=== PATIENT | female | born 1965 | race Caucasian/White ===

== ENCOUNTER → 2025-03-14 | Outpatient (CLI) | payer MEDICAID, SELFPAY ==
--- NOTE | 2025-03-14 15:09 | XR_ITS ---
EXAMINATION: Left femur 2 views TECHNIQUE: AP lateral left femur 2 views Date and time: March 14, 2025, 1514 hours INDICATIONS: Postop reduction internal fixation fracture distal femur January 02, 2025 FINDINGS: Postop reduction internal fixation fracture distal femoral shaft with satisfactory alignment Significant partial healing Orthopedic hardware in satisfactory position IMPRESSION: Significant healing fracture distal femoral shaft with satisfactory alignment
== END | disposition home or self-care (01) ==
PROVIDERS: Referring Provider Orthopaedic Surgery; Visit Provider Orthopaedic Surgery
DX: S72.425A Nondisplaced fracture of lateral condyle of left femur, initial encounter for closed fracture (principal); W23.0XXA Caught, crushed, jammed, or pinched between moving objects, initial encounter
CPT/HCPCS: 73552

== ENCOUNTER 2025-03-19 13:00 | Outpatient (RCR) | payer MEDICAID, SELFPAY ==
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
--- NOTE | 2025-03-11 13:07 | PT.ODAYNRPT ---
PT Outpatient Daily Note OP Daily Note Outpatient Physical Therapy Treatment Date: 03/11/25 Visit Reasons: FRACTURE OF LEFT FEMUR Subjective: Same as time of evaluation Objective: See F/S for therex MHP: x7' Assessment: Pt ambulates with decreased knee flexion ROM with 4WW. She can SLR and lunge with low L knee pain. Plan: Continue per POC Length of Time (minutes) of Treatment: 30 Minutes Procedure Charges Therapeutic Exercise 30 minutes: Yes
--- NOTE | 2025-03-17 13:45 | PT.ODAYNRPT ---
PT Outpatient Daily Note OP Daily Note Outpatient Physical Therapy Treatment Date: 03/17/25 Visit Reasons: FRACTURE OF LEFT FEMUR Subjective: Wants to ambulate without the walker Objective: See F/S for therex MHP: x7' Assessment: Pt ambulates with decreased knee flexion ROM with 4WW and small steps without the walker. She can SLR and lunge with low L knee pain. Plan: Continue per POC Length of Time (minutes) of Treatment: 30 Minutes Procedure Charges Therapeutic Exercise 30 minutes: Yes
--- NOTE | 2025-03-19 13:59 | PT.ODAYNRPT ---
PT Outpatient Daily Note OP Daily Note Outpatient Physical Therapy Treatment Date: 03/19/25 Visit Reasons: FRACTURE OF LEFT FEMUR Subjective: Pt reports knee is moving better but pain still present. Objective: Please see flow sheet for ther ex list. Assessment: Pt instructed on heel slides and encouraged to perform for HEP, pt agreed. Plan: Continue with pOC. Length of Time (minutes) of Treatment: 30 Minutes Procedure Charges Therapeutic Exercise 30 minutes: Yes
== END 2025-03-28 23:59 | disposition home or self-care (01) ==
LOC: CPTX 13:00
PROVIDERS: PCP Orthopaedic Surgery; Referring Provider Orthopaedic Surgery; Visit Provider Orthopaedic Surgery
DX: M25.562 Pain in left knee (principal); S72.8X2D Other fracture of left femur, subsequent encounter for closed fracture with routine healing; V49.9XXD Car occupant (driver) (passenger) injured in unspecified traffic accident, subsequent encounter; I10 Essential (primary) hypertension
CPT/HCPCS: 97110; 97162